=== PATIENT | female | born 1975 | race Caucasian/White ===

== ENCOUNTER 2020-05-25 09:16 | Emergency (ER) | payer MEDICAID, SELFPAY ==
[2020-05-25 09:18] VITALS: BP 129/82; PULSE 80; RESP 14; TEMP 36.5; O2SAT 96
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
[2020-05-25 11:52] VITALS: RESP 16; RESP 17
== END 2020-05-25 11:53 | disposition home or self-care (01) ==
PROVIDERS: Emergency Provider Physician Assistant Medical
DX: S93.401A Sprain of unspecified ligament of right ankle, initial encounter (principal); M25.572 Pain in left ankle and joints of left foot; M25.472 Effusion, left ankle; X50.1XXA Overexertion from prolonged static or awkward postures, initial encounter; Y93.9 Activity, unspecified; Y92.9 Unspecified place or not applicable; Y99.9 Unspecified external cause status; K92.1 Melena; R04.2 Hemoptysis; K74.60 Unspecified cirrhosis of liver; E11.9 Type 2 diabetes mellitus without complications; I10 Essential (primary) hypertension; E78.5 Hyperlipidemia, unspecified; Z79.4 Long term (current) use of insulin; Z79.899 Other long term (current) drug therapy; Z87.891 Personal history of nicotine dependence
CPT/HCPCS: 73610; 99283

== ENCOUNTER 2020-05-25 21:01 | Emergency (ER) | payer MEDICAID, SELFPAY ==
[2020-05-25] VITALS (12 sets, daily range): BP systolic 79–127; BP diastolic 47–77; PULSE 71–99; RESP 12–21; TEMP 36.3–36.6; O2SAT 89–99; BMI 28.7
[2020-05-25] MEDS: 0.9% Normal Saline 1,000 ML 1000 ML IV (21:36)
[2020-05-25] MEDS: Morphine 4 MG/ML Syringe IV (21:37)
[2020-05-25] MEDS: Ondansetron 4 MG/2 ML Vial IV ×2 (21:38→22:05)
[2020-05-25] MEDS: Ceftriaxone 1 GM/50 ML BAG IV (21:41)
[2020-05-25 21:55] LABS: Absolute Lymphocyte Count 1.89 X10^3/uL (0.83-4.51); Absolute Neutrophil Count 5.5 X10^3/uL (2.0-7.7); Basophil# 0.03 X10^3/uL; Basophil% 0.4 % (0-1); Eosinophil# 0.05 X10^3/uL; Eosinophils% 0.6 % (0-5); Hematocrit 37.3 % (37-47); Hemoglobin 12.2 g/dL (12.0-15.0); Lymphocyte # 1.89 X10^3/ul (4.0); Lymphocyte % 23.3 % (19-41); Mean Corp Hgb Conc 32.7 g/dL (32-36); Mean Corpuscular Volume 94.9 fL (81-99); Mean Platelet Vol. 13.1 fl (6.2-12.0); Monocyte% 7.4 % (0-10); NRBC Flagged by Analyzer 0 % (0-5); Neutrophil % 67.9 % (47-70); Platelet Count 103 K/mm3 (150-450); RBC Distribution Width CV 14.4 % (11.6-14.6); RBC Distribution Width SD 50.5 fl (35.1-43.9); Red Blood Count 3.93 M/mm3 (4.2-5.4); White Blood Count 8.1 K/mm3 (4.4-11.0)
[2020-05-25 21:57] LABS: International Normalized Ratio 1.2; Prothrombin Time (Protime)PT. 14.4 SECONDS (11.7-14.9)
--- NOTE | 2020-05-25 21:57 | ED.DCSUM_ITS ---
- ER Visit Summary Date of Service: 05/25/20 Chief Complaint: Vomiting blood History of Present Illness: The patient is a 45 F who reports that she moved to [place] 1 month ago. She states that she has a history of cirrhosis and esophageal varices. States that they attempted to band these at [facility] 1 year ago and it did not take. She was supposed to follow-up with a crate builder and never did. She reports that she began vomiting blood 3 days ago. States she vomited 3 times yesterday. She vomited 9 times today. She complains of sharp, cramping diffuse abdominal pain. Is 10 of 10 worsening to 10 currently. Is worsened by ibuprofen. Is relieved by relaxing. Patient reports that she had a hard bowel movement this morning and there was a blood clot with that. She denies any diarrhea. No melena. She denies any dysuria or frequency. Patient reports that she drinks 48 ounces of twisted tea a day. Physical Examination: Vitals: Stable. Afebrile. General: Well-nourished and well-developed. Head: Normocephalic atraumatic. Neck: Supple, no lymphadenopathy. No JVD. Nontender. Cardiovascular: Regular rate and rhythm. No murmurs. Respiratory: No respiratory distress. Clear to auscultation bilaterally. Abdominal: Soft, mild diffuse tenderness to palpation, nondistended, normal bowel sounds. No guarding, rebound, or peritoneal signs. Back: Nontender. Extremities: Nontender, no edema. Skin: Normal color, no rash. Neurologic: Alert and oriented ?3. Cranial nerves II through XII are intact. Normal strength and sensation. Psych: Normal affect. Test Results: CBC shows platelets of 103. Initial hemoglobin is 12.2. Chem-7 shows a glucose of 230 and BUN of 30. LFTs show total protein of 8.9, albumin of 2.5, globulin 6.4, total bili of 2.7, alk phos of 860, AST of 48. INR is 1.2. PTT is 27.6. Alcohol is negative. Emergency Department Course and Treatment: Patient had an IV placed. She was given a dose of Protonix, Rocephin and octreotide IV. She was given morphine and Zofran. She is resting more comfortably. She vomited approximately 500 cc of maroon-colored blood while in the emergency department. Patient was given 2 L of saline. Patient was typed and crossed and transfusion of 2 units of packed red blood cells was started. Initially her blood pressure was normal. Her systolic blood pressure has decreased into the 70s. Treatment Plan: Patient was discussed with the hospitalist. She does have a history of esophageal varices. She needs to go to the hospital with gastroenterology. She asked to go to [facility]. Unfortunately with her having active esophageal variceal bleeding they have asked that she be transferred to a bigger hospital. Patient was discussed with the ICU doctor at [facility]. Disposition: Transferred in critical condition. Impression: 1. Upper GI bleed. 2. History of esophageal varices. 3. Cirrhosis. 4. Thrombocytopenia. 5. Alcohol abuse. 6. Critical care time 33 minutes. This note was generated with [employer] dictation software. It may contain incorrect words, spelling, and punctuation that were not noted in review of the chart prior to signing ED Disposition - Plan for ED Patient: Referrals: Sara Huang NP-C [Primary Care Provider] -
[2020-05-25 21:58] LABS: Partial Thromboplast Time 27.6 Seconds (24.1-36.2)
[2020-05-25 22:03] LABS: ALB/GLOB Ratio 0.4 RATIO (0.9-2.4); AST(SGOT) 48 U/L (15-37); Alanine Aminotransfer ALT/SGPT 52 U/L (13-56); Albumin, Serum 2.5 g/dL (3.2-5.0); Alkaline Phosphatase 860 U/L (45-117); Anion Gap 5 (5-15); BUN 30 mg/dL (7-18); BUN/Creat Ratio 32.9 RATIO (10-20); Calcium,Total 8.8 mg/dL (8.5-10.1); Chloride 102 mmol/L (98-107); Creatinine, Serum 0.91 mg/dL (0.55-1.02); EST Glomerular Filtration Rate 71 mL/min (>60); Est Glom Filt Rate - Afr Amer 86 mL/min (>60); Estimated Creatinine Clearance 79.58 ml/min; Globulin 6.4 g/dL (2.2-4.2); Glucose 230 mg/dL (74-106); Lipase 210 U/L (73-393); Protein, Total 8.9 g/dL (6.4-8.2); Sodium Level 137 mmol/L (136-145)
[2020-05-25] MEDS: 0.9% Normal Saline 1,000 ML 999 ML IV (23:01)
[2020-05-26] VITALS (11 sets, daily range): BP systolic 92–106; BP diastolic 41–71; PULSE 87–96; RESP 12–21; TEMP 36.2–36.5; O2SAT 96–98
--- NOTE | 2020-05-26 02:21 | ED.RN ---
PRBC's and Sandostatin continued upon transfer to [facility].
== END 2020-05-26 02:22 | disposition short-term general hospital (02) ==
LOC: ED 21:48
PROVIDERS: Emergency Provider Emergency Medicine; PCP Nurse Practitioner Family
DX: K92.2 Gastrointestinal hemorrhage, unspecified (principal); K74.60 Unspecified cirrhosis of liver; D69.6 Thrombocytopenia, unspecified; F10.10 Alcohol abuse, uncomplicated; F17.200 Nicotine dependence, unspecified, uncomplicated; I10 Essential (primary) hypertension; K21.9 Gastro-esophageal reflux disease without esophagitis; Z79.899 Other long term (current) drug therapy; S93.401A Sprain of unspecified ligament of right ankle, initial encounter; M25.572 Pain in left ankle and joints of left foot; M25.472 Effusion, left ankle; X50.1XXA Overexertion from prolonged static or awkward postures, initial encounter; Y93.9 Activity, unspecified; Y92.9 Unspecified place or not applicable; Y99.9 Unspecified external cause status; K92.1 Melena; R04.2 Hemoptysis; E11.9 Type 2 diabetes mellitus without complications; E78.5 Hyperlipidemia, unspecified; Z79.4 Long term (current) use of insulin; Z87.891 Personal history of nicotine dependence
CPT/HCPCS: 73610; 80053; 80320; 83690; 85025; 85610; 85730; 86850; 86900; 86901; 86920; 96365; 96366; 96367; 96375; 99283; 99285; J7030; J7040; P9016; A4216; G0480; J2405; J3490